=== PATIENT | male | born 1985 | race African-American/Black ===

== ENCOUNTER 2016-07-19 16:17 | Emergency (ER) | payer OTHER ==
--- NOTE | ~2016-07-19 | CT2 ---
[facility] A Service of [facility] RADIOLOGY TEXT RESULTS PATIENT: NATIVIDAD MOSS LOCATION: SED : 89 UNIT #: [id number] AGE: [address]: Prem Gaspar SEX: M ORDER DR: [id number] [address] [address] [id number] MR#: [id number] #: [id number] NAME: NATIVIDAD MOSS : 1985 SEX: M STUDY DATE/TIME: 07/19/2016 17:57 UNIT: SED ROOM: STUDY DESCRIPTION: CT Abd and Pelv W Cont Attending Physician: Prem Gaspar P.A.-C. Ordering Physician: Prem Gaspar P.A.-C. Primary Care Physician: Primary Care Physician No MEDICAL IMAGING REPORT This report is preliminary unless electronic signature is present. EXAM CT abdomen and pelvis with IV contrast HISTORY Abdomen pain for 1 week. No injury. FINDINGS CT abdomen and pelvis was performed with IV contrast. This CT exam was performed with one or more of the following radiation dose reduction techniques: Automatic exposure control, adjustment of mA and/or kV according to patient size, and iterative reconstruction. CT ABDOMEN: The liver, gallbladder, spleen, pancreas, kidneys, and adrenal glands are normal. No bowel dilatation. No adenopathy. No ascites. Normal caliber abdominal aorta. CT PELVIS: Normal appendix. No free fluid. No inflammatory stranding. Urinary bladder is decompressed. IMPRESSION 1. No acute findings in the abdomen or pelvis. 2. Normal appendix. 3. No urinary obstruction or bowel obstruction. Dictated by... Tobias Wei M.D. THIS IS AN ELECTRONICALLY VERIFIED REPORT Tobias Wei M.D. at 07/20/2016 2:18 PM [facility] A Service of [facility] RADIOLOGY TEXT RESULTS PATIENT: NATIVIDAD MOSS LOCATION: SED : 89 UNIT #: [id number] AGE: [address]: Prem Gaspar SEX: M ORDER DR: HERMES/suhail TD: 07/20/2016 01:55 JOB #: [id number] MEDICAL IMAGING REPORT
[~2016-07-19 16:17] MED LIST: FLEXERIL10 MG PO; NO MEDICATIONS; NORCO1 TAB 10/3 PO; VOLTAREN75 MG PO
[2016-07-19 16:30] LABS: BASOPHIL% 0.6 % (0-2.5); EOSINOPHIL# 0.1 X10e3 (0-0.7); EOSINOPHIL% 0.7 % (0.0-7.0); HEMATOCRIT 50.6 % (38.0-50.0); HEMOGLOBIN 17.3 gm/dL (13.0-16.0); LYMPHOCYTE# 1.5 X10e3 (1.0-3.5); LYMPHOCYTE% 19.8 % (17.0-45.0); MEAN CELL VOLUME 97.1 FL (83-96); MEAN CORPUSCULAR HEMOGLOBIN 33.1 PG (28-34); MEAN CORPUSCULAR HGB CONC 34.1 g/dL (30-36); MEAN PLATELET VOLUME 6.6 FL (6.5-11.5); MONOCYTE# 0.7 X10e3 (0-1.0); NEUTROPHIL# 5.4 X10e3 (1.5-7.1); NEUTROPHIL% 69.9 % (40-75); PLATELET COUNT 296 X10e3 (140-420); RED BLOOD COUNT 5.21 X10e (3.90-5.60); RED CELL DISTRIBUTION WIDTH 14.6 % (11.0-15.5); WHITE BLOOD COUNT 7.8 X10e3 (4.0-10.5)
[2016-07-19 16:32] LABS: URINE SOURCE CLEAN CATCH
[2016-07-19 16:32] LABS: DIFF IND NO
[2016-07-19 16:34] LABS: URINE APPEARANCE CLEAR; URINE BILIRUBIN NEG (NEG); URINE BLOOD TRACE-LYSED (NEG); URINE COLOR YELLOW; URINE GLUCOSE NEG (NORM); URINE KETONE NEG (NEG); URINE LEUKOCYTE ESTERASE NEG (NEG); URINE NITRATE NEG (NEG); URINE PH 6.5 (5-8); URINE PROTEIN NEG (NEG); URINE SPECIFIC GRAVITY <=1.005 (1.003-1.035); URINE UROBILINOGEN 0.2 MG/DL (NORM)
[2016-07-19 16:55] LABS: ALBUMIN SERUM 4.9 g/dL (3.5-5.0); ALKALINE PHOSPHATASE 88 U/L (32-92); ALT (SGPT) 40 U/L (10-40); AST (SGOT) 29 U/L (10-42); BILIRUBIN, DIRECT 0.1 mg/dL (0.0-0.2); BILIRUBIN,INDIRECT 0.8 mg/dL (0.0-0.9); BILIRUBIN,TOTAL 0.9 mg/dL (0.2-2.0); BLOOD UREA NITROGEN 8 mg/dL (9-23); CALCIUM SERUM 9.2 mg/dL (8.4-10.2); CARBON DIOXIDE 27 mmol/L (22-31); CHLORIDE 103 mmol/L (100-111); CREATININE SERUM 0.8 mg/dL (0.6-1.4); GLOM FILT RATE Estimated ABOVE60 mL/min (>60); GLUCOSE FASTING 98 mg/dL (70-110); LIPASE 57 U/L (22-51); POTASSIUM 3.5 mmol/L (3.5-5.1); PROTEIN TOTAL SERUM 8.5 g/dL (6.0-8.3); SODIUM 138 mmol/L (135-145)
[2016-07-19 17:19] LABS: MICRO INDICATED? YES
[2016-07-19 17:28] LABS: CULTURE INDICATED? NO; URINE BACTERIA NEG (NEG); URINE RBC 0-2 /[HPF] (0-2); URINE WBC 0-2 /[HPF] (0-5)
[2016-07-19] MEDS ORDERED: ZOFRAN ODT4 MG PO (18:44)
[2016-07-19] MEDS ORDERED: PROTONIX PO (18:44)
== END 2016-07-19 18:44 | disposition home or self-care (01) ==
LOC: SED 16:17
PROVIDERS: Physician Assistant
DX: R10.84 Generalized abdominal pain (principal); Z98.890 Other specified postprocedural states
CPT/HCPCS: 36415; 74177; 80048; 80076; 81003; 83690; 85025; 96361; 96374; 99284; J2405; Q9967